=== PATIENT | female | born 1980 | race Asian ===

== ENCOUNTER 2024-06-18 05:08 | Day surgery (SDC) | payer BC ==
[2024-06-17 10:05] VITALS: BMI 21.0
[2024-06-18] MEDS ORDERED: DEXAMETHASONE SOD PHOSPHATE 4 MG/1 ML VIAL ONE (08:19)
[2024-06-18] MEDS ORDERED: KETOROLAC TROMETHAMINE 30 MG/1 ML VIAL ONE (08:19)
[2024-06-18] MEDS ORDERED: ONDANSETRON 4 MG/2 ML VIAL ONE (08:19)
[2024-06-18] MEDS ORDERED: MIDAZOLAM HCL 2 MG/2 ML SINGLE DOSE VIAL ONE (08:20)
[2024-06-18] MEDS ORDERED: PROPOFOL 20 ML ONE (08:20)
[2024-06-18] MEDS: ceFAZolin SODIUM 1 GM VIAL IVPB ONE ×2 (08:40)
[2024-06-18] MEDS ORDERED: LACTATED RINGERS SOLUTION 1,000 ML IV SCH (09:30)
[2024-06-18] MEDS ORDERED: ACETAMINOPHEN 325 MG TABLET (FP) PO PRN (09:36)
[2024-06-18] MEDS ORDERED: IBUPROFEN 400 MG TABLET (FP) PO PRN (09:36)
[2024-06-18 10:46] VITALS: TEMP 98
[2024-06-18 11:14] VITALS: BP 98/57; PULSE 64; RESP 17
== END 2024-06-18 11:17 | disposition home or self-care (01) ==
LOC: JASU-SURG 05:08
PROVIDERS: ATTEND Specialist
PROC: 0UDB8ZZ Extraction of Endometrium, Via Natural or Artificial Opening Endoscopic (ICD-10-PCS; principal; 2024-06-18 08:00)
DX: D25.0 Submucous leiomyoma of uterus (principal)
CPT/HCPCS: 81025; 88305-TC; 94760